=== PATIENT | female | born 1960 | race African-American/Black ===

== ENCOUNTER 2019-09-25 06:53 | Emergency (ER) | payer BC, OTHER ==
[~2019-09-25] VITALS: Ht 170.2 cm; Wt 77.1 kg
[~2019-09-25 06:53] MED LIST: NKM
--- NOTE | 2019-09-25 07:15 | NUR ---
ED Nurse Note:pt. came with left knee injury and pain , s/p fall, VSS, ambulatory, given pain meds x-ray done
[2019-09-25] MEDS ORDERED: IBUPROFEN600 MG ORAL (07:37)
[2019-09-25] MEDS ORDERED: NORCO 5-325 TA1 EACH ORAL (07:37)
[2019-09-25 07:51] VITALS: BP 156/95
--- NOTE | 2019-09-25 07:55 | NUR ---
ER DISCHARGE NOTE:knee immobilizer and cratchies were provided Patient is cleared to be discharged per ERMD, pt is aox4, on room air, with stable vital signs. pt was given dc and prescription instructions, pt was able to verbalize understanding, pt is able to ambulate with steady gait. pt took all belongings.
--- NOTE | 2019-09-25 08:07 | Emergency Room Report ---
History of Present Illness General Chief Complaint: Lower Extremity Injury Source: Patient Present Illness HPI Patient sustained a mechanical fall yesterday and landed on her left knee. Patient states that she felt that her left knee gave out. She heard a pop. She is complaining of swelling in the left knee. 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 She has pain limited range of motion. Denies any other injuries. Symptoms noted to be severe. Pain is nonradiating. No prior injuries to the leg before. No other modifying factors. No other associated signs and symptoms. No other complaints were noted. Allergies: Coded Allergies: NO KNOWN ALLERGIES (Unverified Allergy, Unknown, 09/04/15) Patient History Past Medical History: none Past Surgical History: none Pertinent Family History: none Social History: Denies: smoking, alcohol use, drug use Last Menstrual Period: na Reviewed Nursing Documentation: PMH: Agreed; PSxH: Agreed Nursing Documentation-PMH Past Medical History: No Stated History Review of Systems All Other Systems: negative except mentioned in HPI Physical Exam Vital Signs Date Time Temp Pulse Resp B/P (MAP) Pulse Ox O2 Delivery O2 Flow Rate FiO2 09/25/19 07:03 98.1 76 16 166/97 (120) 97 Room Air Sp02 EP Interpretation: reviewed, normal General Appearance: normal inspection, well appearing, no apparent distress, alert Head: atraumatic Eyes: bilateral eye normal inspection ENT: normal ENT inspection, hearing grossly normal, normal voice Neck: normal inspection, full range of motion, supple, no bony tend Respiratory: normal inspection, lungs clear, normal breath sounds, no respiratory distress, no retraction, no wheezing Cardiovascular #1: regular rate, rhythm, no edema Gastrointestinal: normal inspection, normal bowel sounds, non tender, soft, no guarding, no hernia Genitourinary: no CVA tenderness Musculoskeletal: back normal, swelling - Left knee, tender - left Knee Neurologic: normal inspection, alert, responsive, speech normal Psychiatric: normal inspection, judgement/insight normal, mood/affect normal Skin: no rash Procedures Splinting Splinting : Consent: Verbal Location: Left knee Pre-Made Type: knee immobilizer Pre-Proc Neuro Vasc Exam: normal Post-Proc Neuro Vasc Exam: normal Patient Tolerated: Well Complications: None Medical Decision Making Diagnostic Impression: Primary Impression: Strain of knee and leg, left ER Course Patient presents emergency department today complaint left knee injury. Differential considerations include fracture dislocation versus strain. Given patient's presentation I feel the x-rays are indicated. X-rays did not show any evidence of fracture dislocation. However there is evidence of knee effusion which is consistent with likely ligamentous injury. Recommend close outpatient follow-up. Will place patient in knee immobilizer crutches recommend follow-up with orthopedics and possible MRI. Patient is advised to follow up with primary doctor in 2-3 days and return the emergency room for any worsening symptoms and as needed. Other X-Ray Diagnostic Results Other X-Ray Diagnostic Results : # of Views/Limited Vs Complete: 3 View Indication: Pain EP Interpretation: Yes Interpretation: no dislocation, no fractures, other - Soft tissue swelling, knee effusion Impression: Other - Soft tissue swelling and lead effusion Electronically Signed by: Electronically signed by Armani Clemons MD Last Vital Signs Date Time Temp Pulse Resp B/P (MAP) Pulse Ox O2 Delivery O2 Flow Rate FiO2 09/25/19 07:51 98.1 78 16 156/95 97 Room Air Status: improved Disposition: HOME, SELF-CARE Condition: Stable Scripts Ibuprofen* (MOTRIN*) 600 Mg Tablet 600 MG ORAL Q8H PRN for For Pain, #20 TAB 0 Refills Prov: Armani Clemons MD 09/25/19 Hydrocodone Bit/Acetaminophen 5-325* (NORCO 5-325*) 1 Each Tablet 1 TAB ORAL Q6H PRN for For Pain, #10 TAB 0 Refills Prov: Armani Clemons MD 09/25/19 Referrals: Gustabo He MD Departure Forms: Return to Work Return to Work Date: Sep 29, 2019 Patient Instructions: Crutch Use, [id number], Knee Immobilizer, [id number] , Knee Sprain Armani Clemons MD Sep 25, 2019 08:07
--- NOTE | 2019-09-25 12:54 | Diagnostic Imaging Report ---
INDICATION: Knee Pain COMPARISON: None 3 views of the left knee were obtained. FINDINGS: There is a joint effusion. There is no malalignment or fracture. IMPRESSION: Joint effusion.
== END 2019-09-25 08:00 | disposition home or self-care (01) ==
LOC: EEVIPCON 07:16 → EMR 07:16
DX: S86.212A Strain of muscle(s) and tendon(s) of anterior muscle group at lower leg level, left leg, initial encounter (principal); W18.30XA Fall on same level, unspecified, initial encounter; Y92.9 Unspecified place or not applicable
CPT/HCPCS: 29505; 99283

== ENCOUNTER 2019-12-22 05:48 | Day surgery (SDC) | payer BC ==
[~2019-12-22] VITALS: Ht 170.2 cm; Wt 83.5 kg
[2019-12-22] VITALS (12 sets, daily range): BP systolic 97–154; BP diastolic 49–84
[~2019-12-22 05:48] MED LIST changes: +IBUPROFEN600 MG ORAL; +NORCO 5-325 TA1 EACH ORAL
[2019-12-22] MEDS ORDERED: celeBREX 200mg Cap **SURGERY PATIENTS ONLY ORAL ONE (06:00)
[2019-12-22] MEDS ORDERED: oxyCONTIN 20mg tab ORAL ONE (06:00)
[2019-12-22] MEDS ORDERED: ceFAZolin 1gm IVPB IVPB ONE ×2 (06:00)
[2019-12-22] MEDS ORDERED: Ketorolac 30mg Inj ONE ×2 (06:28→07:56)
[2019-12-22] MEDS ORDERED: Kenalog-40 1ml Vial ONE (06:28)
[2019-12-22] MEDS ORDERED: Duramorph PF 5mg/10ml amp ONE (06:28)
[2019-12-22] MEDS ORDERED: NeoSporin Gu Irrig 1ml Amp IRRIG ONE (06:29)
[2019-12-22] MEDS ORDERED: Bacitracin 50000 Units Vial ONE (06:29)
[2019-12-22] MEDS ORDERED: Bupivacaine 0.25% Inj 30ml INJ ONE (06:29)
[2019-12-22] MEDS ORDERED: Lidocaine 1% 10mg/ml/Epi 0.005mg/ml 30ml vial INJ ONE (06:29)
[2019-12-22] MEDS ORDERED: EPINEPHrine 1mg/1ml Amp ONE (06:30)
[2019-12-22] MEDS ORDERED: LR 1000ml 1,000 ML IVLG SCH (06:52)
--- NOTE | 2019-12-22 06:52 | Anethesia Preoperative Eval ---
Anesthesia Pre-op PMH/ROS General Date of Evaluation: Dec 22, 2019 Anesthesiologist: Ruddy ASA Score: ASA 1 Mallampati Score Class I : Soft palate, uvula, fauces, pillars visible Class II: Soft palate, uvula, fauces visible Class III: Soft palate, base of uvula visible Class IV: Only hard plate visible Mallampati Classification: Class II Surgeon: Neri Diagnosis: Left knee ACL tear Surgical Procedure: Left knee arthroscopy with ACL repair Anesthesia History: none Family History: no anesthesia problems Allergies: Coded Allergies: NO KNOWN ALLERGIES (Unverified Allergy, Unknown, 09/04/15) Medications: see eMAR Patient NPO?: Yes NPO Date: Dec 22, 2019 NPO Time: 00:00 Past Medical History Cardiovascular: Denies: HTN, CAD, [place], valve dz, arrhythmia, other Pulmonary: Denies: asthma, COPD, JUNITO, other Gastrointestinal/Genitourinary: Denies: GERD, CRI, ESRD, other Neurologic/Psychiatric: Denies: dementia, CVA, depression/anxiety, TIA, other Endocrine: Denies: DM, hypothyroidism, steroids, other HEENT: Denies: cataract (L), cataract (R), glaucoma, [place] (L), [place] (R), other Hematology/Immune: Denies: anemia, DVT, bleeding disorder, other Musculoskeletal/Integumentary: Denies: OA, RA, DJD, DDD, edema, other PSxH Narrative: Denies Anesthesia Pre-op Phys. Exam Physician Exam Last Vital Signs Date Time Temp Pulse Resp B/P (MAP) Pulse Ox O2 Delivery O2 Flow Rate FiO2 12/22/19 06:39 98.0 62 18 154/84 98 Room Air Constitutional: NAD Cardiovascular: RRR Respiratory: CTA Airway Exam Mallampati Score: Class II MO: full ROM: full Anesthesia Pre-op A/P Labs see chart Studies Pre-op Studies: EKG - sr Risk Assessment & Plan Assessment: ASA I Plan: GA with left adductor nerve block Status Change Before Surgery: No Pre-Antibiotics Drug: TBD Given Within 1 Hr of Incision: Yes Suma Blanchard MD Dec 22, 2019 06:52
[2019-12-22] MEDS ORDERED: LORazepam Inj 2mg/ml 1ml IV PRN (07:00)
[2019-12-22] MEDS ORDERED: Hydromorphone 0.5mg/0.5ml inj IVP PRN (07:00)
[2019-12-22] MEDS ORDERED: Ketorolac 30mg Inj IV PRN (07:00)
[2019-12-22] MEDS ORDERED: fentaNYL 100 mcg/2 mL IV PRN (07:00)
[2019-12-22] MEDS ORDERED: DiphenhydrAMINE 50mg/ml Inj IVP PRN (07:00)
[2019-12-22] MEDS ORDERED: Midazolam 2mg/2ml Inj IVP PRN (07:00)
--- NOTE | 2019-12-22 07:06 | Pre-Procedure Note/Attestation ---
Pre-Procedure Note/Attestation Complete Prior to Procedure Planned Procedure: left Procedure Narrative: knee arthroscopic acl recontrustion, possible menisectomy Indications for Procedure Pre-Operative Diagnosis: left knee acl and meniscus tear Attestation I attest that I discussed the nature of the procedure; its benefits; risks and complications; and alternatives (and the risks and benefits of such alternatives ), prior to the procedure, with the patient (or the patient's legal pharmacy services representative). I attest that, if there was a reasonable possibility of needing a blood transfusion, the patient (or the patient's legal pharmacy services representative) was given the [facility] standardized written summary, pursuant to the Roberth Obert Blood Safety Act ([place] Health and Safety Code # 1645, as amended). I attest that I re-evaluated the patient just prior to the surgery and that there has been no change in the patient's H&P, except as documented below: Gustabo He MD Dec 22, 2019 07:06
--- NOTE | 2019-12-22 07:07 | Operative Note - PDOC ---
Operative Note Operative Note Pre-op Diagnosis: left knee acl and meniscus tear Procedure: see op report Post-op Diagnosis: same as pre-op plus Operative Findings: consistent w/pre-op dx studies Anesthesia: regional, MAC Specimen: none Complications: none Condition: stable Estimated Blood Loss: none Implant(s) used?: Yes Gustabo He MD Dec 22, 2019 07:07
[2019-12-22] MEDS ORDERED: HYDROcodone/Acetamin 5/325 tab ORAL PRN (07:15)
[2019-12-22] MEDS ORDERED: Tylenol #3 tab (300mg/30mg) ORAL PRN (07:15)
[2019-12-22] MEDS ORDERED: HYDROmorphone 1mg/ml Carpuject SUBQ PRN (07:15)
[2019-12-22] MEDS ORDERED: D5 1/2NS 1,000 ML IV SCH (07:15)
[2019-12-22] MEDS ORDERED: Propofol 200mg/20ml IV ONE (07:19)
[2019-12-22] MEDS ORDERED: fentaNYL 100 mcg/2 mL IV ONE (07:19)
[2019-12-22] MEDS ORDERED: Midazolam 2mg/2ml Inj ONE (07:19)
[2019-12-22] MEDS ORDERED: Lidocaine 1% MPF 10mg/ml 5ml ONE (07:19)
[2019-12-22] MEDS ORDERED: NS Irrig 1000ml ONE (07:30)
[2019-12-22] MEDS ORDERED: LR 1000ml ONE (07:30)
[2019-12-22] MEDS ORDERED: Dexamethasone 4mg/ml vial ONE (07:55)
[2019-12-22] MEDS ORDERED: Metoclopramide 10mg/2ml Inj ONE (07:55)
[2019-12-22] MEDS ORDERED: NS Irrig 4000ml IRRIG ONE (08:12)
--- NOTE | 2019-12-22 09:26 | Immediate Post-Op Evaluation ---
Immediate Post-Op Evalulation Immediate Post-Op Evalulation Procedure: Left knee arthroscopy with ACL Date of Evaluation: Dec 22, 2019 Time of Evaluation: 09:27 IV Fluids: 800 Blood Products: 0 Estimated Blood Loss: min Urinary Output: 0 Blood Pressure Systolic: 97 Blood Pressure Diastolic: 49 Pulse Rate: 60 Respiratory Rate: 16 O2 Sat by Pulse Oximetry: 99 Temperature (Fahrenheit): 97.1 Pain Score (1-10): 0 Nausea: No Vomiting: No Complications 0 Patient Status: awake, reacts, patent, none Hydration Status: adequate Drug: Ancef 2g Given Within 1 Hr of Incision: Yes Suma Blanchard MD Dec 22, 2019 09:26
--- NOTE | 2019-12-22 09:28 | 48 Hour Post Anesthesia Eval ---
Post Anesthesia Evaluation Procedure: Left knee arthroscopy with ACL Date of Evaluation: Dec 22, 2019 Airway: patent Nausea: No Vomiting: No Hydration Status: adequate Cardiopulmonary Status: at baseline Mental Status/LOC: patient returned to baseline Post-Anesthesia Complications: 0 Follow-up care needed: ready to discharge Suma Blanchard MD Dec 22, 2019 09:28
--- NOTE | 2019-12-22 16:15 | Operative Note - Dictated ---
DATE OF OPERATION: 12/22/2019 PREOPERATIVE DIAGNOSES: 1. Left knee ACL tear. 2. Left knee lateral meniscus tear. 3. Left knee patellofemoral chondral damage. POSTOPERATIVE DIAGNOSES: 1. Left knee complete ACL tear. 2. Grade 2 chondral damage inferior pole of patella. 3. Hypertrophic synovial tissue of medial and lateral patellofemoral compartment. 4. Left knee lateral meniscectomy or lateral meniscus tear. PROCEDURES: 1. Left knee arthroscopic ACL reconstruction, tibialis anterior allograft. 2. Partial lateral meniscectomy. 3. Chondroplasty of patellofemoral compartment. 4. Synovectomy, medial and lateral patellofemoral compartment. SURGEON: Gustabo He M.D. ANESTHESIA: Interscalene with general. INDICATION FOR PROCEDURE: The patient is a pleasant female who has had a significant injury to her left knee, was diagnosed the ACL with a concomitant meniscal tear. The patient failed conservative management. She elected to undergo left knee ACL reconstruction. Risks, limitations, expectations, complications of procedure were discussed in detail. All questions addressed. ANESTHESIOLOGIST: After informed consent was obtained, the patient was brought to the operating and placed under general anesthesia with a femoral adductor block. Left hip was prepped and draped in a sterile manner. Time-out was performed. A tibialis anterior allograft was then prepared on the back table. Examination of anesthesia showed positive Leodan test, positive reverse pivot shift test. Inferolateral stab incision was then made. Trocar was introduced at the knee joint. There is grade 3 chondral damage of patellofemoral compartment, medial compartment was entered, medial working portal was established. Chondroplasty of the patellofemoral compartment was performed. Once chondroplasty was completed, synovectomy in the medial intercondylar notch, lateral and patellofemoral compartment was completed, better visualization of the knee. Once the synovectomy was completed, medial size and the meniscus was probed, noted to be intact. The ACL stump was removed. The lateral compartment was entered. There is a small tear of the posterior horn lateral meniscus as well as in the mid body. Partial meniscectomy was performed. Once this was done, femoral tibial tunnels were prepared. The tibialis anterior allograft was then passed through the tibial tunnel, intercondylar notch, femoral tunnel, superior of the toggle lock, suture relay. The graft was then fashioned and secured with a tibial interference screw. Once this was done, the instruments were removed. Portal sites were closed with 3-0 Monocryl sutures. Steri-Strips and dressing were applied. ESTIMATED BLOOD LOSS: None. COMPLICATIONS: None. SPECIMENS: None. IMPLANTS: Include tibialis anterior allograft, Biomet relay system, and a 10 x 30 tibial interference screw. Gustabo He M.D. DR: TAMEKA JOB#: [id number] CC: LILLY
== END 2019-12-22 11:55 | disposition home or self-care (01) ==
LOC: SUR 05:48
DX: S83.512A Sprain of anterior cruciate ligament of left knee, initial encounter (principal); M67.262 Synovial hypertrophy, not elsewhere classified, left lower leg; S83.282A Other tear of lateral meniscus, current injury, left knee, initial encounter
CPT/HCPCS: 29876; 29881; 29888; 97161; C1713; J0690; J1100; J1170; J1885; J2250; J2405; J2704; J2765; J3010; J3490; J7120; 94003; 94150

== ENCOUNTER 2020-05-10 06:09 | Day surgery (SDC) | payer BC ==
[2020-05-10] VITALS (13 sets, daily range): BP systolic 118–157; BP diastolic 52–87
[~2020-05-10] VITALS: Ht 170.2 cm; Wt 81.6 kg
[~2020-05-10 06:09] MED LIST changes: +ceFAZolin 1gm IVPB IVPB ONE; +celeBREX 200mg Cap **SURGERY PATIENTS ONLY ORAL ONE; +oxyCONTIN 20mg tab ORAL ONE
[2020-05-10] MEDS ORDERED: LR 1000ml ONE (07:00)
[2020-05-10] MEDS ORDERED: fentaNYL 100 mcg/2 mL IV ONE ×2 (07:11→07:58)
[2020-05-10] MEDS ORDERED: Midazolam 2mg/2ml Inj ONE (07:11)
[2020-05-10] MEDS ORDERED: Bupivacaine 0.25% Inj 30ml INJ ONE ×2 (07:23→07:27)
--- NOTE | 2020-05-10 07:23 | Pre-Procedure Note/Attestation ---
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 I attest that, if there was a reasonable possibility of needing a blood transfusion, the patient (or the patient's legal equal opportunity representative) was given the [facility] standardized written summary, pursuant to the Roberth Nas Blood Safety Act ([place] Health and Safety Code # 1645, as amended). I attest that I re-evaluated the patient just prior to the surgery and that there has been no change in the patient's H&P, except as documented below: Gustabo He MD May 10, 2020 07:23
--- NOTE | 2020-05-10 07:23 | Operative Note - PDOC ---
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
[2020-05-10] MEDS ORDERED: Kenalog-40 1ml Vial ONE (07:26)
[2020-05-10] MEDS ORDERED: Duramorph PF 5mg/10ml amp ONE (07:26)
[2020-05-10] MEDS ORDERED: Lidocaine 1% 10mg/ml/Epi 0.005mg/ml 30ml vial INJ ONE (07:27)
[2020-05-10] MEDS ORDERED: Metoclopramide 10mg/2ml Inj IVP PRN (07:30)
[2020-05-10] MEDS ORDERED: fentaNYL 100 mcg/2 mL IV PRN (07:30)
[2020-05-10] MEDS ORDERED: Tylenol #3 tab (300mg/30mg) ORAL PRN (07:30)
[2020-05-10] MEDS ORDERED: HYDROcodone/Acetamin 5/325 tab ORAL PRN (07:30)
[2020-05-10] MEDS ORDERED: HYDROmorphone 1mg/ml Carpuject SUBQ PRN (07:30)
[2020-05-10] MEDS ORDERED: Acetaminophen (Non formulary) 100 ML IV ONE (07:30)
[2020-05-10] MEDS ORDERED: D5 1/2NS 1,000 ML IV SCH (07:30)
[2020-05-10] MEDS ORDERED: DiphenhydrAMINE 50mg/ml Inj IVP PRN (07:30)
[2020-05-10] MEDS ORDERED: Hydromorphone 0.5mg/0.5ml inj IVP PRN (07:30)
[2020-05-10] MEDS ORDERED: Ropivacaine 5mg/ml Vial 20ml INJ ONE (07:56)
[2020-05-10] MEDS ORDERED: Metoclopramide 10mg/2ml Inj ONE (07:56)
[2020-05-10] MEDS ORDERED: Lidocaine 1% MPF 10mg/ml 5ml ONE (07:56)
[2020-05-10] MEDS ORDERED: NS Irrig 2000ml IRRIG ONE (08:00)
[2020-05-10] MEDS ORDERED: Ketorolac 30mg Inj ONE (08:17)
--- NOTE | 2020-05-10 10:42 | Anethesia Preoperative Eval ---
Anesthesia Pre-op PMH/ROS General Date of Evaluation: May 10, 2020 Time of Evaluation: 07:10 Anesthesiologist: bhargavi ASA Score: ASA 1 Mallampati Score Class I : Soft palate, uvula, fauces, pillars visible Class II: Soft palate, uvula, fauces visible Class III: Soft palate, base of uvula visible Class IV: Only hard plate visible Mallampati Classification: Class II Surgeon: boubacar Diagnosis: knee pain Surgical Procedure: left knee arthroscopy Anesthesia History: none Family History: no anesthesia problems Allergies: Coded Allergies: NO KNOWN ALLERGIES (Unverified Allergy, Unknown, 09/04/15) Medications: see eMAR Patient NPO?: Yes NPO Date: May 10, 2020 NPO Time: 00:01 Past Medical History Cardiovascular: Denies: HTN, CAD, [place], valve dz, arrhythmia, other Pulmonary: Denies: asthma, COPD, JUNITO, other Gastrointestinal/Genitourinary: Denies: GERD, CRI, ESRD, other Neurologic/Psychiatric: Denies: dementia, CVA, depression/anxiety, TIA, other Endocrine: Denies: DM, hypothyroidism, steroids, other HEENT: Denies: cataract (L), cataract (R), glaucoma, [place] (L), [place] (R), other Hematology/Immune: Denies: anemia, DVT, bleeding disorder, other PSxH Narrative: ACL repair in Anesthesia Pre-op Phys. Exam Physician Exam Last Vital Signs Date Time Temp Pulse Resp B/P (MAP) Pulse Ox O2 Delivery O2 Flow Rate FiO2 05/10/20 10:15 71 15 140/52 100 Room Air 05/10/20 09:50 97.5 Constitutional: NAD Neurologic: CN 2-12 intact Cardiovascular: RRR Respiratory: CTA Gastrointestinal: S/NT/ND Airway Exam Mallampati Classification 2 Mallampati Score: Class II MO: full ROM: full Dentures: no upper, no lower Anesthesia Pre-op A/P Studies Pre-op Studies: EKG - sr Risk Assessment & Plan Plan: general and adductor Pre-Antibiotics Drug: ancef Given Within 1 Hr of Incision: Yes Time Given: 07:40 Emily Jaffe CRNA May 10, 2020 10:42
--- NOTE | 2020-05-10 10:44 | Immediate Post-Op Evaluation ---
Immediate Post-Op Evalulation Immediate Post-Op Evalulation Procedure: knee scope Date of Evaluation: May 13, 2020 Time of Evaluation: 09:00 IV Fluids: 500 Blood Pressure Systolic: 137 Blood Pressure Diastolic: 78 Pulse Rate: 70 Respiratory Rate: 14 O2 Sat by Pulse Oximetry: 98 Temperature (Fahrenheit): 97.5 Nausea: No Vomiting: No Complications none Patient Status: awake, reacts, patent Hydration Status: adequate Drug: ancef Given Within 1 Hr of Incision: Yes Time Given: 07:40 Emily Jaffe CRNA May 10, 2020 10:44
--- NOTE | 2020-05-10 14:13 | 48 Hour Post Anesthesia Eval ---
Post Anesthesia Evaluation Procedure: knee scope Date of Evaluation: May 10, 2020 Time of Evaluation: 14:02 Blood Pressure Systolic: 130 0: 60 Pulse Rate: 54 Respiratory Rate: 14 Temperature (Fahrenheit): 97.5 O2 Sat by Pulse Oximetry: 99 Airway: patent Nausea: No Vomiting: No Hydration Status: adequate Cardiopulmonary Status: stable Mental Status/LOC: patient returned to baseline Follow-up Care/Observations: na Post-Anesthesia Complications: none Follow-up care needed: N/A Emily Jaffe CRNA May 10, 2020 14:13
--- NOTE | 2020-05-10 21:15 | Operative Note - Dictated ---
DATE OF OPERATION: 05/10/2020 PREOPERATIVE DIAGNOSES: 1. Status post left knee ACL reconstruction. 2. Left knee arthrofibrosis. POSTOPERATIVE DIAGNOSES: 1. Status post left knee ACL reconstruction. 2. Left knee arthrofibrosis. 3. Hypertrophic synovial tissue, medial and lateral patellofemoral compartment. 4. Possible anterior impingement, distal femur. 5. Status post ACL reconstruction with intact graft. Slight impingement of the graft with extension. 6. Grade 2 chondral damage, patellofemoral compartment. PROCEDURES: 1. Left knee diagnostic arthroscopy with revision synovectomy, medial and lateral patellofemoral compartment. 2. Notchplasty, anterior and superior femur/trochlear groove. 3. Revision chondroplasty, patellofemoral compartment. SURGEON: Gustabo He MD ANESTHESIA: MAC. INDICATION FOR PROCEDURE: The patient ACL reconstruction, developed arthrofibrosis postoperatively despite physical therapy. Elected to undergo left knee arthroscopy, synovectomy, and manipulation under anesthesia. Risks, limitations, expectations, and complications or procedure were discussed in detail. All questions addressed. DESCRIPTION OF PROCEDURE: After informed consent was obtained, the patient was brought to the operating room. The patient was placed under general anesthesia. Ancef was administered. Time-out was performed. Examination under anesthesia showed range of motion was -5 to 90. Once that was done, gentle manipulation was performed. Extension was -5 to 120 with gravity with resistance was 130. At this point, inferolateral stab incision was made. Trocar introduced into the patellofemoral compartment. There was hypertrophic scar tissue in the medial and lateral gutters. Medial working portal was then established. At this point, synovectomy at the anterior portion of the medial compartment extending into intercondylar notch was performed. There was some erythema along the capsule as well as the synovial tissue. The knee was lavaged with the irrigation. Attention was turned towards the ACL first. The ACL graft appeared to be in continuity with intact fixation points. With the knee complete in extension, there may have been some anterior impingement of the anterior-superior aspect of distal femur. Therefore, using a round-tipped shahbaz, femoral trochleoplasty was performed to open up the intercondylar space along the distal femur. At this point, the graft was again probed and noted to be intact. there was some fraying of the graft, but that was because the two grafts were in good soft tissue tension in continuity. At this point, the camera was placed in the medial working portal. The lateral gutter was visualized. There was a band of hypertrophic scar tissue which was debrided down to the medial gutter. Once this was done, the camera was repositioned in the lateral viewing portal. The patellofemoral compartment was visualized. The synovectomy extending into the medial gutter and into the suprapatellar pouch was performed. Once this was done, there was still some grade 2 chondral damage in the patellofemoral compartment. Gentle revision chondroplasty was performed extending along the patellofemoral compartment. Camera was then repositioned in the medial viewing portal and the synovectomy of the lateral gutter extending the suprapatellar pouch was performed. At this point, the instruments were removed. Portal sites were closed with 3-0 Monocryl suture. Steri-Strips and sterile dressing were applied. ESTIMATED BLOOD LOSS: None. COMPLICATIONS: None. SPECIMENS: None. IMPLANTS: None. Gustabo He M.D. DR: TRINH JOB#: [id number] CC:
== END 2020-05-10 11:05 | disposition home or self-care (01) ==
LOC: SUR 06:09
DX: M24.662 Ankylosis, left knee (principal); M67.262 Synovial hypertrophy, not elsewhere classified, left lower leg; Z98.890 Other specified postprocedural states
CPT/HCPCS: 29876; 29999; 94003; J0131; J0690; J1170; J1885; J2250; J2405; J2704; J2765; J2795; J3010; J3301; J3490; J7120; 94150